=== PATIENT | male | born 1955 | race Caucasian/White ===

== ENCOUNTER 2016-10-29 09:27 | Day surgery (SDC) | payer BC ==
--- NOTE | 2016-10-28 08:50 | HISTORY AND PHYSICAL ---
ADMITTED: 10/29/2016 HISTORY OF PRESENT ILLNESS: The patient is a 61-year-old male with a chief complaint of a chronic ulceration on the plantar medial aspect of his left great toe. He states the ulceration has been present for over a year, and this was treated by [facility]. At that time, his primary care provider, TIM Begum, then sent him over to [facility], [place], where I have been treating him and then started serial Apligraf and total contact casting. However, the patient states he would like to have more definitive treatment and more accelerated, and we had discussed surgical options. MEDICAL/SURGICAL HISTORY: Past medical history includes a history of [id number], uncontrolled diabetes, hyperuricemia, essential hypertension, psoriasis, chronic gout. His primary care provider, as stated, is TIM Begum . Surgical history: None reported. MEDICATIONS: 1. Allopurinol 300 mg tablet 1 by mouth daily. 2. Atenolol 100 mg tablet 1 by mouth daily. 3. Glimepiride 4 mg, take 2 tablets by mouth b.i.d. 4. Hydrochlorothiazide 25 mg tablets 1 by mouth daily. 5. Lisinopril 10 mg tablet 1 by mouth daily. 6. Actos 30 mg tablet 1 by mouth daily for diabetes. 7. Simvastatin 20 mg tablet 1 by mouth daily. 8. Invokana 100 mg tablet 1 by mouth b.i.d. 9. Nabumetone 750 mg tablet 1 by mouth b.i.d. 10. Multivitamin 1 by mouth daily. 11. Aspirin 81 mg tablet 1 by mouth daily. ALLERGIES: 1. CODEINE. 2. METFORMIN. SOCIAL HISTORY: He is employed full-time. He is . Does not smoke nor drink. No alcohol. FAMILY HISTORY: Diabetes. REVIEW OF SYSTEMS: A 10-point review of systems is noncontributory to the chief complaint. PHYSICAL EXAMINATION: GENERAL: The patient is alert, oriented x3. HEAD AND NECK: PERRLA. Normocephalic. HEART: Regular rate and rhythm. Normal sounds. Regular S1 and S2. LUNGS: Clear to auscultation. No wheezing, rhonchi, or rales. Normal effort. INTEGUMENT: No palpable masses. ABDOMEN: Normal tones. LOWER EXTREMITY: Vascular: DP and PT pulses are palpable. Subpapillary venous plexus capillary refill within normal limits. The left hallux presents with an ulceration on the plantar medial aspect of the IPJ, approximately 1 x 1 x 0.5 cm. It is at the plantar medial aspect of the IP joint. Radiographs taken on an OrthoScan weightbearing platform revealed no evidence of osteomyelitis or bone involvement. Ulceration is directly underlying the IP joint. IMPRESSION: 1. Chronic wound, plantar aspect of the left great toe. 2. Uncontrolled diabetes. PLAN: The plan is to take a more proactive approach and do a primary arthrodesis of the first interphalangeal joint of the left great toe, harvest bone graft to facilitate closure from the left heel, and apply an Apligraf. He is well aware of the planned procedure. There are no contraindications to surgery at this time. Surgery is scheduled on an outpatient basis at [place] on 10/29/2016.
[~2016-10-29] VITALS: Ht 167.6 cm; Wt 99.2 kg
[~2016-10-29 09:27] MED LIST: ALLOPURINOL300 MG PO; AMARYL1 MG PO; ASPIRIN ADULT L81 M1 PO; ATENOLOL100 MG PO; HYDROCHLOROTHIA25 MG PO; INVOKANA100 MG PO; LISINOPRIL10 MG PO; PIOGLITAZONE HC15 MG PO; SIMVASTATIN20 MG PO
[2016-10-29] MEDS ORDERED: ZOFRAN4 MG PO (13:40)
[2016-10-29] MEDS ORDERED: PERCOCET1 TA4 PO (13:40)
--- NOTE | 2016-10-29 13:41 | Provider's Discharge Care Plan ---
Problem, Goal, Plan Problem List 1. Decreased range of motion of left foot Goals: Improve function Instructions: Follow up as directed
--- NOTE | 2016-10-29 13:41 | Provider's Discharge Care Plan ---
Problem, Goal, Plan Problem List 1. Decreased range of motion of left foot Goals: Improve function Instructions: Follow up as directed
--- NOTE | 2016-10-29 14:43 | DIAGNOSTIC IMAGING REPORT ---
PROCEDURE: XR FOOT 3 VIEWS - LEFT INDICATION: POST-OP- IN PACU TECHNIQUE: Three views. COMPARISON: None. FINDINGS: A screw and a pin are fusing the interphalangeal joint of the great toe. IMPRESSION: 1. Great toe interphalangeal joint fusion.
--- NOTE | 2016-10-29 15:04 | OPERATIVE REPORT ---
DATE OF SURGERY: 10/29/2016 SURGEON: Juan Cook DPM PREOPERATIVE DIAGNOSES: 1. Chronic ulceration, left interphalangeal joint of the great toe 2. Contracture of the interphalangeal joint, left great toe POSTOPERATIVE DIAGNOSES: 1. Chronic ulceration, left interphalangeal joint of the great toe 2. Contracture of the interphalangeal joint, left great toe PROCEDURES PERFORMED: 1. Arthrodesis of the interphalangeal joint of the left great toe 2. Bone graft harvesting 3. Apligraf application. ANESTHESIA: General. HEMOSTASIS: Achieved by pneumatic ankle tourniquet inflated to 250 mmHg pressure. TOURNIQUET TIME: 73 minutes. MATERIALS: Used 3-0 and 4-0 Polysorb, 4-0 Surgipro, one 34 mm 3.5 headless compression screw and one 7 x 10 BME staple and 1 mL of DBM bone putty and one Apligraf. INJECTABLES: Injected 20 mL of 0.5% bupivacaine plain. COMPLICATIONS: None. CONDITION: The patient tolerated anesthesia and procedure well. INDICATIONS: The patient is a 61-year-old male with a chronic ulceration on the plantar medial aspect of the left great toe. Ulceration has been present at least 6 months or greater. He is being treated by myself at [facility]. We have applied 1 Apligraf and total contact casting is yet to close it. It is nathan; however, we are going to do a prophylactic IP fusion and an Apligraf application. He is well aware of the planned procedure. No contraindications to surgery at this time. SURGICAL TECHNIQUE: The patient was brought to the operating room and placed on the table in the supine position. At this time, a general anesthetic was administered, pneumatic tourniquet was then placed above the left ankle. The left lower extremity was prepped and draped in normal sterile fashion. An intraoperative pause was carried out for positive identification, proper limb, and consent form verified and confirmed, as well as administration and delivery of the preoperative antibiotic of cefazolin. Esmarch bandage was utilized to exsanguinate the limb, the tourniquet was then inflated. Attention was directed to procedure #1. PROCEDURE #1: HARVEST BONE GRAFT, LEFT HEEL: At this time, a linear incision was made parallel to the longitudinal axis just inferior to the lateral malleolus, deepened by sharp and blunt dissection, a periosteal elevator was utilized to free up the periosteum of the lateral aspect of the os calcis. An Ar[employer]rex bone harvester 6 mm in diameter was utilized. It was harvested successfully. It was then back filled with 1 mL of bone DBM bone putty. The skin incision was reapproximated with 4-0 Polysorb. Attention was then directed to procedure #2. PROCEDURE #2: ARTHRODESIS, IP JOINT: At this time, a transverse incision was made overlying the dorsum of the interphalangeal joint, long extensor tendon was transected and reflected back proximally. The head of the proximal phalanx was excised. The base of the distal phalanx was then rongeured. It was then fish scaled accordingly and fenestrated with a 0.045 K-wire. Drill holes were then prepped with a 2.7 drill hole centrally and the distal and interphalangeal joints. The toe was held in a rectus position. The bone graft which was harvested as well as the remainder DBM bone putty was placed and a 3.5 x 34 mm headless compression screw was placed. At this time, a 7 x 10 mm BME staple was then placed laterally adding additional points of fixation. It did barely catch the distal base of the phalanx. Stable fixation. The area was flushed. The long extensor tendon was reapproximated with 3-0 Polysorb, subcutaneous with 4-0 and skin was reapproximated in a running fashion. The screw was inserted from distal to proximal and an incision was made, which was then closed with 4-0 Polysorb. Attention was directed to procedures #3, application of Apligraf. At this time, attention was directed to the plantar medial ulceration where a curette was utilized to remove bioburden buildup. The Apligraf was then placed. It was then secured with Mastisol and Steri-Strips. All surgical areas were then locally anesthetized with the aforementioned local anesthetic and a light compressive dressing was applied. The tourniquet was released with reactive hyperemia and good digital perfusion. The patient tolerated the procedures and anesthesia well and left the operating room with vital signs stable. While in recovery, explicit instructions for touchdown weightbearing with the aid of a postoperative shoe, dispensed, will follow back with me on Tuesday the at [facility], at which point we will place him back in a total contact cast.
== END 2016-10-29 15:17 | disposition home or self-care (01) ==
LOC: OR SRH 09:27 → SCU SRH 09:28 → OR SRH 12:00
PROVIDERS: Podiatrist
PROC: 0QBM0ZZ Excision of Left Tarsal, Open Approach (ICD-10-PCS; principal; 2016-10-29 12:00)
PROC: 0HRNXK3 Replacement of Left Foot Skin with Nonautologous Tissue Substitute, Full Thickness, External Approach (ICD-10-PCS; principal; 2016-10-29 12:00)
PROC: 0SGQ04Z Fusion of Left Toe Phalangeal Joint with Internal Fixation Device, Open Approach (ICD-10-PCS; principal; 2016-10-29 12:00)
DX: E11.621 Type 2 diabetes mellitus with foot ulcer (principal); M20.5X2 Other deformities of toe(s) (acquired), left foot; M24.575 Contracture, left foot; E11.65 Type 2 diabetes mellitus with hyperglycemia; I10 Essential (primary) hypertension

== ENCOUNTER 2016-11-17 09:33 | Outpatient (CLI) | payer BC ==
[~2016-11-17 09:33] MED LIST changes: +PERCOCET1 TA4 PO; +ZOFRAN4 MG PO
--- NOTE | 2016-11-17 10:40 | DIAGNOSTIC IMAGING REPORT ---
PROCEDURE: XR TOE - LEFT INDICATION: POST SURGICAL-HARDWARE PLACEMENT TECHNIQUE: Three views COMPARISON: Left foot x-ray 10/29/2016 FINDINGS: There is a screw through the great toe PIP joint which is stable. The previously noted stable has dislodged and now projects over the distal aspect proximal phalanx. There is also a new fracture of the proximal phalanx distally with mild medial displacement of the distal fragment medially. Progression of indistinct great toe distal tuft cortical margin. There is soft tissue swelling of the great toe. IMPRESSION: 1. Left great toe PIP joint surgical fusion with dislodged staple and new minimally displaced fracture of the proximal phalanx distally 2. Progression of indistinct left great toe distal tuft cortical margin consistent with postsurgical osteolysis but osteomyelitis is a consideration 3. Left great toe soft tissue swelling, postsurgical versus cellulitis 4. Results discussed with Dr. jean
== END 2016-11-17 23:00 ==
LOC: XR SRH 09:33
DX: S92.412A Displaced fracture of proximal phalanx of left great toe, initial encounter for closed fracture (principal); L03.032 Cellulitis of left toe; T84.223A Displacement of internal fixation device of bones of foot and toes, initial encounter

== ENCOUNTER 2016-12-17 06:13 | Day surgery (SDC) | payer BC ==
--- NOTE | 2016-12-16 17:49 | HISTORY AND PHYSICAL ---
ADMITTED: 12/17/2016 HISTORY OF PRESENT ILLNESS: The patient is a 61-year-old male with a chief complaint of a hardware failure and nonunion of an IP fusion of the left great toe. I carried out an arthrodesis of the IP joint of the left great toe on 10/29/2016 as well as application of Apligraf for a nonhealing diabetic ulceration. Ulceration ultimately healed successfully. He then subsequently developed a postoperative infection, wound dehiscence dorsally as well as rejection of initially a staple and now the screw is backing out of the fusion. MEDICAL/SURGICAL HISTORY: Past medical history includes a history of noninsulin- dependent diabetes, hyperuricemia, essential hypertension, psoriasis, chronic gout. Surgical history: The aforementioned attempted arthrodesis IP joint 10/29/2016 by myself. PRIMARY CARE PROVIDER: TIM Barr MEDICATIONS: 1. Allopurinol 300 mg 1 by mouth daily. 2. Atenolol 100 mg 1 by mouth daily. 3. Glyburide 4 mg 2 tablets by mouth b.i.d. 4. Hydrochlorothiazide 25 mg tabs 1 by mouth daily. 5. Lisinopril 10 mg tab 1 by mouth daily. 6. Actos 30 mg tab 1 by mouth daily. 7. Simvastatin 20 mg tab 1 by mouth daily. 8. Invokana 100 mg tab 1 by mouth b.i.d. 9. Nabumetone 750 mg tab 1 by mouth b.i.d. 10. Multivitamin 1 by mouth daily. 11. Aspirin 81 mg tab 1 by mouth daily. ALLERGIES: 1. CODEINE. 2. METFORMIN. SOCIAL HISTORY: He is now recently retired, , does not smoke nor drink. FAMILY HISTORY: Diabetes. REVIEW OF SYSTEMS: Ten-point review of systems noncontributory to chief complaint. PHYSICAL EXAMINATION: GENERAL: The patient is alert, oriented x3. HEENT: PERRLA. Normocephalic. HEART: Regular rate and rhythm. Regular S1 and S2. LUNGS: Clear to auscultation. No wheezing, rhonchi, or rales. Normal effort. ABDOMEN: No palpable masses. Normal tones. LOWER EXTREMITY: Vascular: DP and PT pulses are palpable. Subpapillary venous plexus, capillary refill. Dorsolinear incision overlying the IP joint is partially closed. There is movement at the joint. The toe was edematous. The previous ulceration, plantar medial is closed. LAB/IMAGING: Imaging reveals the backing out of the headless compression screw. IMPRESSION: 1. Nonunion, hardware failure, interphalangeal joint, left great toe. PLAN: The patient is scheduled for hardware removal of the left great toe and primary closure of the dehisced wound. There are no contraindications to surgery at this time. Surgery is scheduled outpatient at [place] on 12/17/2016.
[~2016-12-17] VITALS: Ht 167.6 cm; Wt 102.6 kg
--- NOTE | 2016-12-17 06:43 | NUR ---
PRE OP INSTRUCTIONS GIVEN AND SAFETY ISSUES DISCUSSED PT HAD QUESTIONS ANSWERED PT CONFIRMED PROCEDURE PT VERIFIED SIGNATURE PT WASHED FOOT WITH CHLORHEXIDINE WIPE DRESSING ON GREAT TOE REMAINED PT MARKED FOOT
--- NOTE | 2016-12-17 08:24 | NUR ---
0825- PT AWAKE, TALKING, VS STABLE, TOES WARM, MOVE, SENSATON IN ALL TOES. COMFORTABLE. DRESSING DRY
[2016-12-17] MEDS ORDERED: ULTRAM EQIVALEN50 MG PO (08:29)
--- NOTE | 2016-12-17 08:31 | Provider's Discharge Care Plan ---
Problem, Goal, Plan Problem List 1. Fracture of left foot with nonunion Goals: Improve function Instructions: Follow up as directed
--- NOTE | 2016-12-17 08:31 | Provider's Discharge Care Plan ---
Problem, Goal, Plan Problem List 1. Fracture of left foot with nonunion Goals: Improve function Instructions: Follow up as directed
--- NOTE | 2016-12-17 08:44 | NUR ---
PATIENT BACK FROM OR. VITALS STABLE. LLE ELEVATED, WITH CLEAN, DRY DRESSINGS. TOES PINK AND WARM, WITH CAP REFILL <3 SEC. ABLE TO WIGGLE TOES. DENIES PAIN AND NAUSEA AT THIS TIME. WILL CONTINUE TO MONITOR.
--- NOTE | 2016-12-17 09:14 | OPERATIVE REPORT ---
DATE OF SURGERY: 12/17/2016 SURGEON: Juan Cook DPM PREOPERATIVE DIAGNOSIS: 1. Nonunion interphalangeal joint, left great toe POSTOPERATIVE DIAGNOSIS: 1. Nonunion interphalangeal joint, left great toe PROCEDURE PERFORMED: 1. Removal of hardware, left great toe and delayed primary closure of dorsal incision. ANESTHESIA: IV sedation with local, local being 10 mL of 0.5% bupivacaine plain. HEMOSTASIS: Achieved by a [place] drain acting as a tourniquet. MATERIALS: 3-0 Polysorb and 4-0 Surgipro. COMPLICATIONS: None. CONDITION: The patient tolerated anesthesia and procedure well. INDICATIONS: The patient is a 61-year-old male who I carried out an IPJ arthrodesis on on 10/29/2016. Hardware that was employed was a 3.5 headless compression screw and a small compression staple. Applied an Apligraf for a nonhealing wound on the plantar medial aspect of the left great toe. The wound healed successfully removed. He developed a dorsal dehiscence. The staple was then rejected. Through serial x-ray, it appears that the hardware was backing out of the DIPJ with failure to unionize. The toe remained painful and swollen. He had gone through courses of antibiotics, deemed necessary that the dehiscence dorsally was secondary to rejection of the hardware with evidence of the staple being rejected and removed in the clinical setting, as well as now the screw backing out of the proximal phalanx. There are no contraindications to surgery at this time. SURGICAL TECHNIQUE: The patient was brought to the operating room and placed on the table in the supine position. An intraoperative pause was carried out for positive identification, proper limb, and consent form verified and confirmed. With adequate sedation delivered intravenously, the toe was then locally anesthetized. The left lower extremity was prepped and draped in normal sterile fashion. A Cherelle was then placed at the base of the left great toe. Attention was then directed to procedure #1. PROCEDURE #1: REMOVAL OF HARDWARE, LEFT GREAT TOE. At this time, a linear incision was made distally transverse and perpendicular to the long axis at the distal tuft, was deepened by sharp and blunt dissection and ran right into the screw, which was already backing out and was easily removed. The dorsal incision, which was dehisced, was then curetted of any remaining fibrinous tissue. Both incisions were flushed. The subcutaneous tissue of both incisions were reapproximated with 3-0 Polysorb and then both incisions were then closed with 4-0 Surgipro. The Cherelle was removed and there was noted reactive hyperemia and good digital perfusion. Light compressive dressing was applied. The patient tolerated the anesthesia and procedure well and left the room with vital signs stable. While in recovery, instructions dispensed for modified weightbearing to tolerance. Keep the foot elevated, no ice. Follow back with me in 3-5 days.
--- NOTE | 2016-12-17 09:26 | NUR ---
PATIENT DEPARTED SCU WITH DAUGHTER AT 0925. VITALS REMAIN STABLE. DISCHARGE INSTRUCTIONS DISCUSSED, INCLUDING DRESSING CARE, PAIN MANAGEMENT AND SIGNS/SYMPTOMS TO REPORT. PATIENT AND DAUGHTER VERBALIZED GOOD UNDERSTANDING OF INSTRUCTIONS UPON DISCHARGE
[2016-12-17 14:39] VITALS: BP 122/59
== END 2016-12-17 09:25 | disposition home or self-care (01) ==
LOC: OR SRH 06:13 → SCU SRH 06:13 → OR SRH 07:30
PROVIDERS: Podiatrist
PROC: 0QPR04Z Removal of Internal Fixation Device from Left Toe Phalanx, Open Approach (ICD-10-PCS; principal; 2016-12-17 07:30)
DX: T84.223A Displacement of internal fixation device of bones of foot and toes, initial encounter (principal); M96.0 Pseudarthrosis after fusion or arthrodesis; E11.9 Type 2 diabetes mellitus without complications; Z79.84 Long term (current) use of oral hypoglycemic drugs; I10 Essential (primary) hypertension
CPT/HCPCS: 29229; 29240; 50004; 60001; 84038; 84522; 90074; 95059